=== PATIENT | male | born 1970 | race Caucasian/White ===

== ENCOUNTER → 2018-12-20 | Outpatient (CLI) | payer BC ==
--- NOTE | 2018-12-20 22:17 | MR ---
EXAMINATION TYPE: MR lumbar spine wo con DATE OF EXAM: 12/20/2018 COMPARISON: None HISTORY: Low back pain. M 55.5 CONTRAST: 0 mL intravenous Gadavist. TECHNIQUE: Multiplanar, multisequence images of the lumbar spine were acquired. FINDINGS: Some minimal disc material appears to be present S1 chest tube. Correlation with plain jean-paul ms would be recommended prior to any surgical intervention. L5-S1: There is loss of disc height L5-S1. Residual disc bulge is present with anterior thecal sac fl attening. Mild facet hypertrophy is present. No spinal canal stenosis or neural foraminal stenosis is present. There is some minimal disc bulging into the inferior lateral left foramen without stenosis or nerve root contact. L4-L5: No significant disc bulge or disc herniation. No spinal canal stenosis. No foraminal stenosi s. Facet hypertrophy is present.. L3-L4: No significant disc bulge or disc herniation. No spinal canal stenosis. No foraminal stenosi s. . L2-L3: No significant disc bulge or disc herniation. No spinal canal stenosis. No foraminal stenosi s. . L1-L2: No significant disc bulge or disc herniation. No spinal canal stenosis. No foraminal stenosi s. . T12-L1: No significant disc bulge or disc herniation. No spinal canal stenosis. No foraminal stenos is. . Disc desiccation is present L5-S1 with normal hydration to the remaining disc levels. Vertebral body heights are preserved. Alignment is normal. IMPRESSION: 1. Degenerative disc changes with loss of disc height and minimal bulge of the residual disc material at L5-S1 has mild anterior thecal sac contact. 2. Some minimal disc material bulging into the inferior left L5-S1 foramen is noted without nerve amanda t contact or stenosis.
== END ==
LOC: RADMRIMAIN 19:44
PROVIDERS: ATTEND Nurse Practitioner Family
DX: M51.37 Other intervertebral disc degeneration, lumbosacral region (principal)
CPT/HCPCS: 72148

== ENCOUNTER → 2019-06-08 | Outpatient (CLI) | payer BC ==
--- NOTE | 2019-06-08 15:56 | US ---
EXAMINATION TYPE: US groin RT DATE OF EXAM: 06/08/2019 COMPARISON: NONE CLINICAL HISTORY: Inguinal Pain R10.2,. Intermittent right groin pain Scanned right groin within patient's area of concern, lymph nodes noted with largest = 1.3cm IMPRESSION: 1. Nonspecific soft tissue nodule measuring 1.3 x 0.5 cm suggestive of a benign lymph node.
--- NOTE | 2019-06-09 14:30 | CT ---
EXAMINATION TYPE: CT abdomen pelvis wo con DATE OF EXAM: 06/08/2019 COMPARISON: None HISTORY: Umbilical hernia and right sided inguinal pain. CT DLP: 883.8 mGycm Automated exposure control for dose reduction was used. TECHNIQUE: Helical acquisition of images was performed from the lung bases through the pelvis. FINDINGS: Lung bases are clear of consolidation. There is a low-density 1.5 cm infiltrate at the right diaphrag m. There is no pleural effusion. Heart size is normal. Liver spleen pancreas gallbladder appear normal. Bile ducts are not dilated. There is no adrenal mass . Kidneys have normal size and contour. There is no hydronephrosis. There is no retroperitoneal adeno sarah. Appendix appears normal. Bladder distends smoothly. There is no inguinal hernia. There is no free fluid in the pelvis. There i s no sign of a bowel obstruction. There is normal contrast opacification of the small bowel. There is broad-based umbilical hernia that contains fat. I see no definite intestinal wall thickening. There is narrowing at L5-S1 disc space with vacuum disc. There is no compression fracture. Bony pelvis appe ars intact. IMPRESSION: SPONDYLOSIS AT L5-S1. NORMAL APPENDIX. UMBILICAL HERNIA CONTAINS FAT. NO ACUTE ABNORMALITY OF THE ABDOMEN PELVIS.
== END ==
LOC: RADUSMAIN 15:05
PROVIDERS: ATTEND Nurse Practitioner Family
DX: K42.9 Umbilical hernia without obstruction or gangrene (principal); M47.897 Other spondylosis, lumbosacral region; R10.2 Pelvic and perineal pain; R22.2 Localized swelling, mass and lump, trunk
CPT/HCPCS: 76882; 74176; Q9967

== ENCOUNTER → 2019-07-06 | Outpatient (CLI) | payer BC ==
--- NOTE | 2019-07-06 15:45 | CT ---
EXAMINATION TYPE: CT sinus wo con DATE OF EXAM: 07/06/2019 COMPARISON: None HISTORY: Congestion and PEREZ CT DLP: 655.4 mGycm CONTRAST: 0 mL of Isovue 300 The paranasal sinuses are examined in the axial plane at 2 mm thick sections. Reconstructed images i n the coronal plane were obtained. There is dental amalgam scatter artifact There is essentially complete opacification throughout frontal sinuses and ethmoid air cells sphenoid sinuses. Air-fluid levels and mucosal thickening within the bilateral maxillary sinuses. Clinical co nsideration for nasal polyposis is recommended. Acute maxillary sinusitis should also be considered. The septum is evaluated. There is septal deviation to the right. The ostiomeatal units are obstructed IMPRESSIONS: 1. Nasal polyposis. 2. Acute bilateral maxillary sinusitis.
== END | disposition home or self-care (01) ==
LOC: RADCTMAIN 11:07
PROVIDERS: ATTEND Otolaryngology
DX: J33.9 Nasal polyp, unspecified (principal); J01.00 Acute maxillary sinusitis, unspecified; Z88.0 Allergy status to penicillin; Z88.5 Allergy status to narcotic agent
CPT/HCPCS: 70486

== ENCOUNTER → 2020-11-18 | Outpatient (CLI) | payer BC ==
--- NOTE | 2020-11-25 13:58 | ECHOF ---
Referral Reason:R06.09 Dyspnea MEASUREMENTS -------- HEIGHT: 188.0 cm WEIGHT: 112.5 kg BP: RVIDd: 2.6 cm (< 3.3) IVSd: 1.2 cm (0.6 - 1.1) LVIDd: 4.9 cm (3.9 - 5.3) LVPWd: 1.1 cm (0.6 - 1.1) IVSs: 1.5 cm LVIDs: 3.3 cm LVPWs: 1.6 cm LA Diam: 3.4 cm (2.7 - 3.8) LAESV Index (A-L): 19.98 ml/m Ao Diam: 2.9 cm (2.0 - 3.7) AV Cusp: 2.1 cm (1.5 - 2.6) LA Diam: 4.0 cm (2.7 - 3.8) MV EXCURSION: 18.221 mm (> 18.000) MV EF SLOPE: 108 mm/s (70 - 150) EPSS: 0.3 cm MV E Derek: 0.67 m/s MV DecT: 181 ms MV A Derek: 0.93 m/s MV E/A Ratio: 0.72 RAP: 5.00 mmHg RVSP: 14.31 mmHg FINDINGS -------- Sinus rhythm. This was a technically good study. The left ventricular size is normal. There is borderline concentric left ventricular hypertrophy. Overall left ventricular systolic function is normal with, an EF between 55 - 60 %. The right ventricle is normal in size. Normal LA size by volume 22+/-6 ml/m2. The right atrial size is normal. The aortic valve is trileaflet, and appears structurally normal. No aortic stenosis or regurgitation. Mild mitral regurgitation is present. Mild tricuspid regurgitation present. Right ventricular systolic pressure is normal at < 35 mmHg. There is no pulmonic regurgitation present. The aortic root size is normal. There is no pericardial effusion. CONCLUSIONS -------- 1. The left ventricular size is normal. 2. There is borderline concentric left ventricular hypertrophy. 3. Overall left ventricular systolic function is normal with, an EF between 55 - 60 %. 4. The right ventricle is normal in size. 5. Normal LA size by volume 22+/-6 ml/m2. 6. The right atrial size is normal. 7. The aortic valve is trileaflet, and appears structurally normal. No aortic stenosis or regurgitati on. 8. Mild mitral regurgitation is present. 9. Mild tricuspid regurgitation present. 10. The aortic root size is normal. 11. There is no pericardial effusion. PILLAR MAN: Jacquie Catalan RDCS
== END ==
LOC: RADECHMAIN 13:51
PROVIDERS: ATTEND Family Medicine
DX: I08.1 Rheumatic disorders of both mitral and tricuspid valves (principal)
CPT/HCPCS: 93306; 94060; 94726; 94729